=== PATIENT | female | born 1960 | race Hispanic/Latino ===

== ENCOUNTER 2020-07-30 00:31 | Emergency (ER) | payer MEDICAID ==
[~2020-07-30] VITALS: Ht 147.3 cm; Wt 86.2 kg
[2020-07-30 01:26] VITALS: BP 191/83
[2020-07-30 01:32] LABS: HEMATOCRIT 36.2 % (36-48); MEAN CORPUSCULAR HEMOGLOBIN 28.6 pg (27.0-33.0); MEAN CORPUSCULAR HGB CONC 33.4 g/dL (32.0-36.0); MEAN CORPUSCULAR VOLUME 85.6 fL (79-99); RED BLOOD CELL COUNT(AUTO) 4.23 MIL/uL (4.00-5.50); WHITE BLOOD COUNT (AUTO) 7.5 K/uL (4.8-10.8)
[2020-07-30] MEDS ORDERED: HYDRALAZINE HCL 20 MG/ML VIAL IV SCH (01:45)
[2020-07-30] MEDS ORDERED: SODIUM CHLORIDE 0.9% 500ML 500 ML IV SCH (01:45)
[2020-07-30] MEDS ORDERED: HYDRALAZINE HCL 20 MG/ML VIAL ONE (01:45)
[2020-07-30 01:53] LABS: CREATININE 1.1 mg/dL (0.5-1.5); POTASSIUM 3.5 mmol/L (3.5-5.1)
[2020-07-30 01:58] VITALS: BP 180/51
[2020-07-30 01:58] LABS: ALBUMIN 2.3 g/dL (3.5-5.0); BILIRUBIN,TOTAL 0.1 mg/dL (0.2-1.0); TOTAL PROTEIN, SERUM 5.7 g/dL (6.0-8.3)
[2020-07-30 02:53] VITALS: BP 170/52
[2020-07-30 03:20] VITALS: BP 156/59
[2020-07-30 04:34] VITALS: BP 156/57
== END 2020-07-30 03:43 | disposition short-term general hospital (02) ==
LOC: EDH 01:18
DX: I10 Essential (primary) hypertension (principal); Z91.14 Patient's other noncompliance with medication regimen; E11.9 Type 2 diabetes mellitus without complications; M19.90 Unspecified osteoarthritis, unspecified site; Z90.710 Acquired absence of both cervix and uterus
CPT/HCPCS: 36415; 71045; 80053; 84484; 85027; 93005; 96374; 99285; J0360

== ENCOUNTER 2020-11-22 14:44 | Emergency (ER) | payer MEDICAID ==
[~2020-11-22] VITALS: Ht 147.3 cm; Wt 80.3 kg
[2020-11-22 14:45] VITALS: BP 166/45
[2020-11-22] MEDS ORDERED: SOLU-MEDROL 125MG VIAL IM STA (16:22)
[2020-11-22] MEDS ORDERED: DiphenhydrAMINE HCL 50 MG/ML VIAL IM ONE (16:30)
== END 2020-11-22 18:10 | disposition home or self-care (01) ==
LOC: EDH 14:44
DX: L40.9 Psoriasis, unspecified (principal); J45.909 Unspecified asthma, uncomplicated; E11.9 Type 2 diabetes mellitus without complications; E78.00 Pure hypercholesterolemia, unspecified; I10 Essential (primary) hypertension; Z79.52 Long term (current) use of systemic steroids; Z90.710 Acquired absence of both cervix and uterus
CPT/HCPCS: 96372 ×2; 99284; J1200; J2930

== ENCOUNTER 2020-12-21 08:46 | Emergency (ER) | payer MEDICAID ==
[~2020-12-21] VITALS: Ht 149.9 cm; Wt 78.0 kg
[2020-12-21] MEDS ORDERED: SOLU-MEDROL 125MG VIAL IVP ONE (09:30)
[2020-12-21] MEDS ORDERED: MORPHINE 2 MG SYG IVP ONE (09:30)
[2020-12-21] MEDS ORDERED: KETOROLAC 15MG/ML VIAL (15MG/ML) IV ONE (09:30)
[2020-12-21 09:44] LABS: BASOPHILS % (AUTO) 0.5 % (0.0-5.0); EOSINOPHILS % (AUTO) 2.6 % (0.0-8.0); HEMATOCRIT 35.6 % (36-48); MEAN CORPUSCULAR HEMOGLOBIN 27.8 pg (27.0-33.0); MEAN CORPUSCULAR HGB CONC 31.7 g/dL (32.0-36.0); MEAN CORPUSCULAR VOLUME 87.5 fL (79-99); MONOCYTES % (AUTO) 9.3 % (3.0-13.0); NEUTROPHILS % (AUTO) 72.9 % (40.0-77.0); PLATELET COUNT (AUTO) 298 K/uL (130-400); RED BLOOD CELL COUNT(AUTO) 4.07 MIL/uL (4.00-5.50); WHITE BLOOD COUNT (AUTO) 9.5 K/uL (4.8-10.8)
[2020-12-21 10:01] LABS: ALBUMIN 1.8 g/dL (3.5-5.0); BILIRUBIN,TOTAL 0.2 mg/dL (0.2-1.0); CREATININE 1.3 mg/dL (0.5-1.5); CRP QUANTITATIVE 14.5 mg/L (0.00-9.0); POTASSIUM 3.9 mmol/L (3.5-5.1); TOTAL PROTEIN, SERUM 5.9 g/dL (6.0-8.3)
[2020-12-21] MEDS ORDERED: IBUP-2070 PO (10:32)
[2020-12-21] MEDS ORDERED: ACET1TAB25 PO (10:32)
[2020-12-21] MEDS ORDERED: METH4TAB3 PO (10:32)
[2020-12-21 10:36] VITALS: BP 136/79
== END 2020-12-21 11:06 | disposition home or self-care (01) ==
LOC: EDH 08:46
DX: L40.9 Psoriasis, unspecified (principal); Z91.14 Patient's other noncompliance with medication regimen; E11.9 Type 2 diabetes mellitus without complications; E78.00 Pure hypercholesterolemia, unspecified; I10 Essential (primary) hypertension; Z79.1 Long term (current) use of non-steroidal anti-inflammatories (NSAID); Z79.52 Long term (current) use of systemic steroids
CPT/HCPCS: 36415; 80053; 85025; 86140; 96374; 96375; 99284; J1885; J2930

== ENCOUNTER 2021-01-18 03:46 | Inpatient (IN) | payer MEDICAID ==
[~2021-01-18] VITALS: Ht 142.2 cm; Wt 85.5 kg
[~2021-01-18 03:46] MED LIST: ACET1TAB25 PO; IBUP-2070 PO; METH4TAB3 PO
[2021-01-18] MEDS ORDERED: FUROSEMIDE 40MG VIAL IVP ONE (04:30)
[2021-01-18] MEDS ORDERED: NITROGLYCERIN 1GM OINT 1 INCH/1GM TD ONE (04:30)
[2021-01-18 04:55] LABS: BASOPHILS % (AUTO) 0.7 % (0.0-5.0); EOSINOPHILS % (AUTO) 5.9 % (0.0-8.0); HEMATOCRIT 34.3 % (36-48); LYMPHOCYTES % (AUTO) 22.7 % (21.0-51.0); MEAN CORPUSCULAR HEMOGLOBIN 27.7 pg (27.0-33.0); MEAN CORPUSCULAR HGB CONC 31.2 g/dL (32.0-36.0); MEAN CORPUSCULAR VOLUME 88.9 fL (79-99); MONOCYTES % (AUTO) 8.8 % (3.0-13.0); PLATELET COUNT (AUTO) 369 K/uL (130-400); RED BLOOD CELL COUNT(AUTO) 3.86 MIL/uL (4.00-5.50); RED CELL DISTRIBUTION WIDTH 15.9 % (11.0-15.5); WHITE BLOOD COUNT (AUTO) 9.9 K/uL (4.8-10.8)
[2021-01-18 05:02] LABS: CREATININE 1.4 mg/dL (0.5-1.5); POTASSIUM 4.3 mmol/L (3.5-5.1)
[2021-01-18 05:12] LABS: B-TYPE NATRIURETIC PEPTIDE 322 pg/mL (0-100); BILIRUBIN,TOTAL 0.2 mg/dL (0.2-1.0); TOTAL PROTEIN, SERUM 6.7 g/dL (6.0-8.3)
[2021-01-18] MEDS ORDERED: SERT-439 PO (05:12)
[2021-01-18] MEDS ORDERED: AMLO-258 PO (05:12)
[2021-01-18] MEDS ORDERED: CETI10TA57 PO (05:12)
[2021-01-18] MEDS ORDERED: LORA10TA7 PO (05:12)
[2021-01-18] MEDS ORDERED: SULF500T8 PO (05:12)
[2021-01-18] MEDS ORDERED: FURO40TA5 PO (05:12)
[2021-01-18] MEDS ORDERED: MECL-160 PO (05:12)
[2021-01-18] MEDS ORDERED: METO50TA18 PO (05:12)
[2021-01-18] MEDS ORDERED: GABA-533 PO (05:12)
[2021-01-18 05:41] LABS: ABG BASE EXCESS -2.3 mmol/L (-2.0-3.0); ABG HCO3 21.7 mmol/L (21.0-28.0); ABG OXYGEN SATURATION 92.9 % (95.0-99.0); ABG PCO2 36 mmHg (32-45)
[2021-01-18] MEDS ORDERED: ACETAMINOPHEN 325 MG TAB PO PRN (06:30)
[2021-01-18] MEDS ORDERED: GUAIFENESIN-DM 200/20 MG 10 ML PO PRN (06:30)
[2021-01-18] MEDS ORDERED: MORPHINE 2 MG SYG IV PRN (06:30)
[2021-01-18] MEDS ORDERED: ONDANSETRON 4MG INJ IV PRN (06:30)
[2021-01-18] MEDS: HYDRALAZINE 20MG/ML VIAL IV PRN (06:44)
[2021-01-18] MEDS: ENOXAPARIN SODIUM 40 MG/0.4 ML SYRINGE SQ SCH (09:18)
[2021-01-18] MEDS ORDERED: 0.9% NACL 250ML IVPB SCH (13:00)
[2021-01-18] MEDS ORDERED: DOXYCYCLINE 100MG IVPB (VIAL) IVPB SCH (13:00)
[2021-01-18] MEDS: DOXYCYCLINE 100MG+NS 250ML 250 ML IV SCH (13:15)
[2021-01-18] MEDS: FUROSEMIDE 40MG VIAL IV SCH (13:15)
[2021-01-18] MEDS: CEFTRIAXONE 1G VIAL IVP SCH (13:15)
[2021-01-18 14:26] LABS: APPEARANCE,URINE Clear (CLEAR); BILIRUBIN,URINE Negative (NEGATIVE); COLOR,URINE Yellow (YELLOW); GLUCOSE, URINE (UA) Negative (NEGATIVE); KETONES,URINE Negative (NEGATIVE); LEUKOCYTE ESTERASE ,URINE Negative (NEGATIVE); NITRATE,URINE Negative (NEGATIVE); OCCULT BLOOD,URINE Negative (NEGATIVE); PROTEIN,URINE 300 mg/dL (NEGATIVE); UROBILINOGEN,URINE 0.2 mg/dL (0.2-1.0)
[2021-01-18 14:37] LABS: BACTERIA,URINE Rare /HPF (None Seen); RBC,URINE 0-1 /HPF (0-1); WBC,URINE 0-1 /HPF (0-1); YEAST,URINE BUDDING Rare /HPF (None Seen)
[2021-01-18 14:38] LABS: SQUAMOUS EPITHELIAL CELL,UR Few /HPF (0-2)
[2021-01-18] MEDS ORDERED: FUROSEMIDE 20MG VIAL IV SCH (16:00)
[2021-01-18] MEDS ORDERED: DEXTROSE 50%-WATER 50 ML DISP.SYRIN IV ONE (22:37)
[2021-01-18] MEDS ORDERED: GLUCAGON 1MG KIT 1 MG ML IM PRN (23:30)
[2021-01-18] MEDS ORDERED: DEXTROSE 50%-WATER 50 ML DISP.SYRIN IV PRN (23:30)
[2021-01-19] MEDS: DEXTROSE 5%-WATER 1,000 ML IV SCH (01:15)
[2021-01-19] MEDS: FUROSEMIDE 40MG VIAL IV SCH ×2 (01:15→14:47)
[2021-01-19] MEDS: DOXYCYCLINE 100MG+NS 250ML 250 ML IV SCH ×2 (01:15→14:47)
[2021-01-19 04:18] LABS: ABG BASE EXCESS 0.7 mmol/L (-2.0-3.0); ABG HCO3 23.8 mmol/L (21.0-28.0); ABG OXYGEN SATURATION 98.2 % (95.0-99.0); ABG PCO2 34 mmHg (32-45)
[2021-01-19] MEDS: ENOXAPARIN SODIUM 40 MG/0.4 ML SYRINGE SQ SCH (08:49)
[2021-01-19] MEDS ORDERED: MECLIZINE HCL 25 MG TABLET PO PRN (09:30)
[2021-01-19] MEDS: HYDRALAZINE 20MG/ML VIAL IV PRN (09:34)
[2021-01-19 09:56] LABS: BASOPHILS % (AUTO) 0.6 % (0.0-5.0); EOSINOPHILS % (AUTO) 4.1 % (0.0-8.0); HEMATOCRIT 35.9 % (36-48); LYMPHOCYTES % (AUTO) 15.4 % (21.0-51.0); MEAN CORPUSCULAR HEMOGLOBIN 27.4 pg (27.0-33.0); MEAN CORPUSCULAR HGB CONC 31.2 g/dL (32.0-36.0); MEAN CORPUSCULAR VOLUME 87.8 fL (79-99); MONOCYTES % (AUTO) 7.8 % (3.0-13.0); NEUTROPHILS % (AUTO) 71.6 % (40.0-77.0); PLATELET COUNT (AUTO) 381 K/uL (130-400); RED BLOOD CELL COUNT(AUTO) 4.09 MIL/uL (4.00-5.50); RED CELL DISTRIBUTION WIDTH 15.8 % (11.0-15.5); WHITE BLOOD COUNT (AUTO) 9.4 K/uL (4.8-10.8)
[2021-01-19 10:11] LABS: CREATININE 1.2 mg/dL (0.5-1.5); POTASSIUM 4.3 mmol/L (3.5-5.1)
[2021-01-19] MEDS: METOPROLOL TARTRATE 50 MG TAB PO SCH (10:31)
[2021-01-19] MEDS ORDERED: TRIAMCINOLONE ACETONIDE 0.1% CREAM 15GM TP SCH (13:00)
[2021-01-19 13:05] VITALS: BP 138/71
[2021-01-19] MEDS ORDERED: SODIUM CHLORIDE 3% FOR INHALATION 4 ML/AMP VIAL.NEB IH ONE (14:09)
[2021-01-19] MEDS ORDERED: 0.9% NACL 250ML 250 ML ONE (14:44)
[2021-01-19] MEDS: CEFTRIAXONE 1G VIAL IVP SCH (14:47)
[2021-01-19 16:00] VITALS: BP 124/71
[2021-01-19 20:15] VITALS: BP 155/94
[2021-01-19] MEDS: SULFASALAZINE 500 MG TAB.DR PO SCH (20:24)
[2021-01-19 23:18] VITALS: BP 119/52
[2021-01-20] MEDS: FUROSEMIDE 40MG VIAL IV SCH ×2 (00:06→15:08)
[2021-01-20] MEDS: DOXYCYCLINE 100MG+NS 250ML 250 ML IV SCH ×2 (00:06→15:07)
[2021-01-20 03:23] VITALS: BP 144/49
[2021-01-20 06:11] LABS: BASOPHILS % (AUTO) 0.8 % (0.0-5.0); EOSINOPHILS % (AUTO) 6.4 % (0.0-8.0); HEMATOCRIT 30.5 % (36-48); LYMPHOCYTES % (AUTO) 20.1 % (21.0-51.0); MEAN CORPUSCULAR HEMOGLOBIN 27.8 pg (27.0-33.0); MEAN CORPUSCULAR HGB CONC 31.8 g/dL (32.0-36.0); MEAN CORPUSCULAR VOLUME 87.4 fL (79-99); MONOCYTES % (AUTO) 10.1 % (3.0-13.0); NEUTROPHILS % (AUTO) 62.1 % (40.0-77.0); PLATELET COUNT (AUTO) 268 K/uL (130-400); RED BLOOD CELL COUNT(AUTO) 3.49 MIL/uL (4.00-5.50); RED CELL DISTRIBUTION WIDTH 16.3 % (11.0-15.5); WHITE BLOOD COUNT (AUTO) 8.8 K/uL (4.8-10.8)
[2021-01-20 06:14] LABS: CREATININE 1.5 mg/dL (0.5-1.5); MAGNESIUM 1.6 mg/dL (1.80-2.40)
[2021-01-20 07:00] VITALS: BP 113/65
[2021-01-20 07:16] VITALS: BP 132/62
[2021-01-20] MEDS ORDERED: MAGNESIUM 2GM PREMIX 50ML 50 ML IV SCH (08:30)
[2021-01-20] MEDS: SULFASALAZINE 500 MG TAB.DR PO SCH ×2 (08:57→20:05)
[2021-01-20] MEDS: SERTRALINE HCL 50 MG TABLET PO SCH (08:57)
[2021-01-20] MEDS: METOPROLOL TARTRATE 50 MG TAB PO SCH (08:57)
[2021-01-20] MEDS: CETIRIZINE HCL 5 MG TABLET PO SCH (08:57)
[2021-01-20] MEDS: AMLODIPINE 5 MG TAB PO SCH (08:57)
[2021-01-20] MEDS: ENOXAPARIN SODIUM 40 MG/0.4 ML SYRINGE SQ SCH (08:58)
[2021-01-20 12:00] VITALS: BP 127/56
[2021-01-20] MEDS: CEFTRIAXONE 1G VIAL IVP SCH (15:07)
[2021-01-20] MEDS: DEXTROSE 5%-WATER 1,000 ML IV SCH ×2 (15:30)
[2021-01-20 16:13] VITALS: BP 130/60
[2021-01-20 19:26] VITALS: BP 138/61
[2021-01-21] MEDS: DOXYCYCLINE 100MG+NS 250ML 250 ML IV SCH ×3 (01:25→21:06)
[2021-01-21] MEDS: FUROSEMIDE 40MG VIAL IV SCH (01:26)
[2021-01-21 01:30] VITALS: BP 140/60
[2021-01-21 05:31] VITALS: BP 107/32
[2021-01-21 06:20] LABS: CREATININE 1.4 mg/dL (0.5-1.5); POTASSIUM 3.7 mmol/L (3.5-5.1)
[2021-01-21 07:18] VITALS: BP 150/50
[2021-01-21] MEDS ORDERED: CEFTRIAXONE 1G VIAL IVP SCH (09:00)
[2021-01-21] MEDS: AMLODIPINE 5 MG TAB PO SCH (09:32)
[2021-01-21] MEDS: SERTRALINE HCL 50 MG TABLET PO SCH (09:32)
[2021-01-21] MEDS: METOPROLOL TARTRATE 50 MG TAB PO SCH (09:32)
[2021-01-21] MEDS: SULFASALAZINE 500 MG TAB.DR PO SCH ×2 (09:32→21:06)
[2021-01-21] MEDS: ENOXAPARIN SODIUM 40 MG/0.4 ML SYRINGE SQ SCH (09:32)
[2021-01-21] MEDS: CETIRIZINE HCL 5 MG TABLET PO SCH (09:32)
[2021-01-21 12:00] VITALS: BP 132/57
[2021-01-21 16:00] VITALS: BP 133/55
[2021-01-21] MEDS ORDERED: SERTRALINE HCL 50 MG TABLET PO SCH (16:00)
[2021-01-21] MEDS: FUROSEMIDE 40 MG TABLET PO SCH (16:18)
[2021-01-21] MEDS ORDERED: FUROSEMIDE 40MG VIAL IV SCH (17:00)
[2021-01-21] MEDS ORDERED: FUROSEMIDE 40 MG TABLET PO SCH (17:00)
[2021-01-21 19:27] VITALS: BP 134/47
[2021-01-22] VITALS: BP 138/54
[2021-01-22 04:30] VITALS: BP 146/65
[2021-01-22 06:41] LABS: BASOPHILS % (AUTO) 0.4 % (0.0-5.0); EOSINOPHILS % (AUTO) 6.5 % (0.0-8.0); MEAN CORPUSCULAR HEMOGLOBIN 27.5 pg (27.0-33.0); MEAN CORPUSCULAR HGB CONC 31.4 g/dL (32.0-36.0); MEAN CORPUSCULAR VOLUME 87.5 fL (79-99); MONOCYTES % (AUTO) 9.7 % (3.0-13.0); NEUTROPHILS % (AUTO) 65.7 % (40.0-77.0); PLATELET COUNT (AUTO) 270 K/uL (130-400); RED CELL DISTRIBUTION WIDTH 15.9 % (11.0-15.5); WHITE BLOOD COUNT (AUTO) 9.2 K/uL (4.8-10.8)
[2021-01-22 07:04] LABS: CREATININE 1.4 mg/dL (0.5-1.5); POTASSIUM 3.7 mmol/L (3.5-5.1)
[2021-01-22] MEDS: FUROSEMIDE 40 MG TABLET PO SCH (09:45)
[2021-01-22] MEDS: METOPROLOL TARTRATE 50 MG TAB PO SCH (09:45)
[2021-01-22] MEDS: CETIRIZINE HCL 5 MG TABLET PO SCH (09:45)
[2021-01-22] MEDS: SULFASALAZINE 500 MG TAB.DR PO SCH ×2 (09:45→22:00)
[2021-01-22] MEDS: SERTRALINE HCL 50 MG TABLET PO SCH (09:45)
[2021-01-22] MEDS: AMLODIPINE 5 MG TAB PO SCH (09:46)
[2021-01-22] MEDS: PANTOPRAZOLE 40 MG TAB DR PO SCH ×2 (09:46→22:00)
[2021-01-22 11:45] LABS: % IRON SATURATION 20.6 % (22-44)
[2021-01-22 12:00] VITALS: BP 170/69
[2021-01-22 16:00] VITALS: BP 118/65
[2021-01-22 20:00] VITALS: BP 128/50
[2021-01-23 00:12] VITALS: BP 137/53
[2021-01-23 04:00] VITALS: BP 139/51
[2021-01-23 07:18] VITALS: BP 146/63
[2021-01-23 07:45] LABS: BASOPHILS % (AUTO) 0.6 % (0.0-5.0); EOSINOPHILS % (AUTO) 4.5 % (0.0-8.0); HEMATOCRIT 29.2 % (36-48); LYMPHOCYTES % (AUTO) 15.3 % (21.0-51.0); MEAN CORPUSCULAR HEMOGLOBIN 27.2 pg (27.0-33.0); MEAN CORPUSCULAR HGB CONC 31.2 g/dL (32.0-36.0); MEAN CORPUSCULAR VOLUME 87.2 fL (79-99); MONOCYTES % (AUTO) 9.1 % (3.0-13.0); NEUTROPHILS % (AUTO) 70.1 % (40.0-77.0); PLATELET COUNT (AUTO) 271 K/uL (130-400); RED BLOOD CELL COUNT(AUTO) 3.35 MIL/uL (4.00-5.50); RED CELL DISTRIBUTION WIDTH 15.9 % (11.0-15.5); WHITE BLOOD COUNT (AUTO) 10.1 K/uL (4.8-10.8)
[2021-01-23 08:14] LABS: CREATININE 1.5 mg/dL (0.5-1.5); POTASSIUM 3.9 mmol/L (3.5-5.1)
[2021-01-23] MEDS: PANTOPRAZOLE 40 MG TAB DR PO SCH (09:00)
[2021-01-23] MEDS: AMLODIPINE 5 MG TAB PO SCH (09:50)
[2021-01-23] MEDS: SULFASALAZINE 500 MG TAB.DR PO SCH ×2 (09:50→21:11)
[2021-01-23] MEDS: CETIRIZINE HCL 5 MG TABLET PO SCH (09:50)
[2021-01-23] MEDS: SERTRALINE HCL 50 MG TABLET PO SCH (09:51)
[2021-01-23] MEDS: METOPROLOL TARTRATE 50 MG TAB PO SCH (09:51)
[2021-01-23] MEDS: FUROSEMIDE 40 MG TABLET PO SCH (09:51)
[2021-01-23 12:00] VITALS: BP 149/71
[2021-01-23] MEDS ORDERED: PANTOPRAZOLE 40 MG TAB DR ONE (12:51)
[2021-01-23] MEDS ORDERED: COMPOUND IV MISC 1 EACH IVSOLN MISC PRN (13:30)
[2021-01-23] MEDS: CEFTRIAXONE 1G VIAL IVP SCH (15:08)
[2021-01-23] MEDS: IRON SUCROSE COMPLEX 500 MG in 0.9%NACL 50ML 50 ML IV SCH (15:08)
[2021-01-23 16:00] VITALS: BP 117/45
[2021-01-23] MEDS: TRIAMCINOLONE ACETONIDE 0.1% CREAM 15GM TP SCH ×2 (17:01→21:00)
[2021-01-23 21:03] VITALS: BP 143/66
[2021-01-24] VITALS (8 sets, daily range): BP systolic 93–152; BP diastolic 43–84
[2021-01-24] MEDS: CETIRIZINE HCL 5 MG TABLET PO SCH (08:50)
[2021-01-24] MEDS: FUROSEMIDE 40 MG TABLET PO SCH (08:50)
[2021-01-24] MEDS: AMLODIPINE 5 MG TAB PO SCH (08:50)
[2021-01-24] MEDS: METOPROLOL TARTRATE 50 MG TAB PO SCH (08:50)
[2021-01-24] MEDS: SERTRALINE HCL 50 MG TABLET PO SCH (08:51)
[2021-01-24] MEDS: PANTOPRAZOLE 40 MG TAB DR PO SCH (08:51)
[2021-01-24] MEDS: TRIAMCINOLONE ACETONIDE 0.1% CREAM 15GM TP SCH ×4 (08:51→20:47)
[2021-01-24] MEDS: SULFASALAZINE 500 MG TAB.DR PO SCH ×2 (08:51→20:45)
[2021-01-24] MEDS: IRON SUCROSE COMPLEX 500 MG in 0.9%NACL 50ML 50 ML IV SCH (08:56)
[2021-01-24] MEDS: CEFTRIAXONE 1G VIAL IVP SCH (13:51)
[2021-01-24] MEDS: LACTULOSE 20 GM/30 ML UDCUP PO PRN (20:45)
[2021-01-24] MEDS: SOLU-MEDROL 40MG VIAL IVP SCH (20:45)
[2021-01-25 05:37] VITALS: BP 152/72
[2021-01-25 07:50] VITALS: BP 129/58
[2021-01-25] MEDS: SULFASALAZINE 500 MG TAB.DR PO SCH (08:38)
[2021-01-25] MEDS: AMLODIPINE 5 MG TAB PO SCH (08:38)
[2021-01-25] MEDS: SOLU-MEDROL 40MG VIAL IVP SCH ×3 (08:38→20:39)
[2021-01-25] MEDS: FUROSEMIDE 40 MG TABLET PO SCH (08:38)
[2021-01-25] MEDS: CETIRIZINE HCL 5 MG TABLET PO SCH (08:38)
[2021-01-25] MEDS: TRIAMCINOLONE ACETONIDE 0.1% CREAM 15GM TP SCH ×4 (08:39→20:48)
[2021-01-25] MEDS: METOPROLOL TARTRATE 50 MG TAB PO SCH (08:39)
[2021-01-25] MEDS: SERTRALINE HCL 50 MG TABLET PO SCH (08:39)
[2021-01-25] MEDS: PANTOPRAZOLE 40 MG TAB DR PO SCH (08:39)
[2021-01-25] MEDS: IRON SUCROSE COMPLEX 500 MG in 0.9%NACL 50ML 50 ML IV SCH (08:42)
[2021-01-25 09:59] LABS: BASOPHILS % (AUTO) 0.4 % (0.0-5.0); HEMATOCRIT 31.6 % (36-48); LYMPHOCYTES % (AUTO) 12.8 % (21.0-51.0); MEAN CORPUSCULAR HEMOGLOBIN 27.1 pg (27.0-33.0); MEAN CORPUSCULAR VOLUME 87.3 fL (79-99); MONOCYTES % (AUTO) 5.8 % (3.0-13.0); NEUTROPHILS % (AUTO) 78.4 % (40.0-77.0); NUCLEATED RED BLOOD CELLS 0.8 % (0.0-0.19); PLATELET COUNT (AUTO) 311 K/uL (130-400); RED BLOOD CELL COUNT(AUTO) 3.62 MIL/uL (4.00-5.50); RED CELL DISTRIBUTION WIDTH 15.9 % (11.0-15.5); WHITE BLOOD COUNT (AUTO) 13.2 K/uL (4.8-10.8)
[2021-01-25 10:08] LABS: % IRON SATURATION 116.3 % (22-44)
[2021-01-25 10:09] LABS: CREATININE 1.8 mg/dL (0.5-1.5); PHOSPHORUS 5.9 mg/dL (2.5-4.9); POTASSIUM 4.4 mmol/L (3.5-5.1)
[2021-01-25 10:11] LABS: BILIRUBIN,TOTAL 0.2 mg/dL (0.2-1.0); CRP QUANTITATIVE 74.4 mg/L (0.00-9.0); MAGNESIUM 2.2 mg/dL (1.80-2.40); TOTAL PROTEIN, SERUM 6.3 g/dL (6.0-8.3)
[2021-01-25 11:00] VITALS: BP 149/65
[2021-01-25 11:07] LABS: ERYTHROCYTE SEDIMENTATION RATE 102 MM/HR (0-30)
[2021-01-25] MEDS ORDERED: HYDROCHLOROTHIAZIDE 25 MG TABLET PO ONE (13:50)
[2021-01-25] MEDS: CEFTRIAXONE 1G VIAL IVP SCH (14:15)
[2021-01-25 16:00] VITALS: BP 149/59
[2021-01-25] MEDS: INSULIN HUMULIN R 100 UNIT/ML 3ML SQ SCH ×3 (16:08→20:47)
[2021-01-25] MEDS ORDERED: SODIUM CHLORIDE 3% FOR INHALATION 4 ML/AMP VIAL.NEB IH ONE (18:36)
[2021-01-25 19:30] VITALS: BP 149/71
[2021-01-25] MEDS: MIRTAZAPINE 15 MG TABLET PO SCH (20:39)
[2021-01-25] MEDS: INSULIN GLARGINE 100 UNITS/ML 10 ML VIAL SQ SCH (20:45)
[2021-01-26 00:38] VITALS: BP 138/48
[2021-01-26 04:52] VITALS: BP 174/69
[2021-01-26] MEDS: SOLU-MEDROL 40MG VIAL IVP SCH ×3 (05:07→22:13)
[2021-01-26 05:25] LABS: BASOPHILS % (AUTO) 0.5 % (0.0-5.0); EOSINOPHILS % (AUTO) 0.1 % (0.0-8.0); HEMATOCRIT 33.2 % (36-48); LYMPHOCYTES % (AUTO) 9.2 % (21.0-51.0); MEAN CORPUSCULAR HEMOGLOBIN 27.6 pg (27.0-33.0); MEAN CORPUSCULAR HGB CONC 30.1 g/dL (32.0-36.0); MEAN CORPUSCULAR VOLUME 91.7 fL (79-99); MONOCYTES % (AUTO) 2.8 % (3.0-13.0); NEUTROPHILS % (AUTO) 83.6 % (40.0-77.0); NUCLEATED RED BLOOD CELLS 1.3 % (0.0-0.19); PLATELET COUNT (AUTO) 262 K/uL (130-400); RED BLOOD CELL COUNT(AUTO) 3.62 MIL/uL (4.00-5.50); WHITE BLOOD COUNT (AUTO) 13.5 K/uL (4.8-10.8)
[2021-01-26 05:50] LABS: B-TYPE NATRIURETIC PEPTIDE 453 pg/mL (0-100)
[2021-01-26 06:04] LABS: BILIRUBIN,TOTAL 0.1 mg/dL (0.2-1.0); CREATININE 2.1 mg/dL (0.5-1.5); CRP QUANTITATIVE 49.3 mg/L (0.00-9.0); POTASSIUM 4.2 mmol/L (3.5-5.1); TOTAL PROTEIN, SERUM 6.3 g/dL (6.0-8.3)
[2021-01-26 07:29] LABS: ERYTHROCYTE SEDIMENTATION RATE 115 MM/HR (0-30)
[2021-01-26] MEDS: INSULIN HUMULIN R 100 UNIT/ML 3ML SQ SCH ×4 (07:30→22:23)
[2021-01-26 08:00] VITALS: BP 167/68
[2021-01-26] MEDS: CETIRIZINE HCL 5 MG TABLET PO SCH (08:31)
[2021-01-26] MEDS: HYDROCHLOROTHIAZIDE 25 MG TABLET PO SCH (08:31)
[2021-01-26] MEDS: PANTOPRAZOLE 40 MG TAB DR PO SCH (08:32)
[2021-01-26] MEDS: METOPROLOL TARTRATE 50 MG TAB PO SCH (08:32)
[2021-01-26] MEDS: AMLODIPINE 5 MG TAB PO SCH (08:32)
[2021-01-26] MEDS: SERTRALINE HCL 50 MG TABLET PO SCH (08:32)
[2021-01-26] MEDS: TRIAMCINOLONE ACETONIDE 0.1% CREAM 15GM TP SCH ×4 (08:39→22:15)
[2021-01-26] MEDS ORDERED: PREDNISONE 20 MG TABLET PO SCH (09:00)
[2021-01-26] MEDS ORDERED: FUROSEMIDE 40 MG TABLET PO SCH (09:00)
[2021-01-26 12:00] VITALS: BP 159/80
[2021-01-26] MEDS ORDERED: 0.9%NACL 1000ML 1,000 ML IV SCH (12:30)
[2021-01-26 16:00] VITALS: BP 162/76
[2021-01-26] MEDS: HYDRALAZINE HCL 10 MG TABLET PO SCH ×2 (16:41→22:13)
[2021-01-26] MEDS: CYCLOBENZAPRINE HCL 10 MG TABLET PO SCH ×2 (16:41→22:12)
[2021-01-26] MEDS: CEFTRIAXONE 1G VIAL IVP SCH (16:41)
[2021-01-26 19:13] VITALS: BP 151/78
[2021-01-26] MEDS: ATORVASTATIN 40 MG TABLET PO SCH (22:12)
[2021-01-26] MEDS: MIRTAZAPINE 15 MG TABLET PO SCH (22:12)
[2021-01-26] MEDS: INSULIN GLARGINE 100 UNITS/ML 10 ML VIAL SQ SCH (22:23)
[2021-01-27] VITALS (7 sets, daily range): BP systolic 146–176; BP diastolic 50–74
[2021-01-27] MEDS: SOLU-MEDROL 40MG VIAL IVP SCH ×3 (04:53→21:16)
[2021-01-27] MEDS: HYDRALAZINE 20MG/ML VIAL IV PRN (04:58)
[2021-01-27] MEDS: INSULIN HUMULIN R 100 UNIT/ML 3ML SQ SCH ×5 (05:59→21:20)
[2021-01-27 06:11] LABS: CREATININE 2.5 mg/dL (0.5-1.5); POTASSIUM 4.3 mmol/L (3.5-5.1)
[2021-01-27 06:41] LABS: HEMATOCRIT 29.6 % (36-48); MEAN CORPUSCULAR HEMOGLOBIN 27.5 pg (27.0-33.0); MEAN CORPUSCULAR HGB CONC 31.8 g/dL (32.0-36.0); MEAN CORPUSCULAR VOLUME 86.5 fL (79-99); NUCLEATED RED BLOOD CELLS 0.7 % (0.0-0.19); RED BLOOD CELL COUNT(AUTO) 3.42 MIL/uL (4.00-5.50); RED CELL DISTRIBUTION WIDTH 15.9 % (11.0-15.5); WHITE BLOOD COUNT (AUTO) 13.7 K/uL (4.8-10.8)
[2021-01-27] MEDS: HYDROCHLOROTHIAZIDE 25 MG TABLET PO SCH (10:25)
[2021-01-27] MEDS: SERTRALINE HCL 50 MG TABLET PO SCH (10:25)
[2021-01-27] MEDS: METOPROLOL TARTRATE 50 MG TAB PO SCH (10:26)
[2021-01-27] MEDS: HYDRALAZINE HCL 10 MG TABLET PO SCH ×3 (10:26→21:16)
[2021-01-27] MEDS: PANTOPRAZOLE 40 MG TAB DR PO SCH (10:26)
[2021-01-27] MEDS: AMLODIPINE 5 MG TAB PO SCH (10:26)
[2021-01-27] MEDS: CETIRIZINE HCL 5 MG TABLET PO SCH (10:26)
[2021-01-27] MEDS: CYCLOBENZAPRINE HCL 10 MG TABLET PO SCH ×3 (10:26→21:16)
[2021-01-27] MEDS: TRIAMCINOLONE ACETONIDE 0.1% CREAM 15GM TP SCH ×4 (10:27→21:27)
[2021-01-27] MEDS: CEFTRIAXONE 1G VIAL IVP SCH (13:30)
[2021-01-27] MEDS: BUSPIRONE HCL 5 MG TABLET PO SCH ×2 (13:33→21:15)
[2021-01-27 14:26] LABS: CREATINE KINASE, TOTAL 46 U/L (21-232); MYOGLOBIN 91 ng/mL (10-92)
[2021-01-27 20:52] LABS: APPEARANCE,URINE CLOUDY (CLEAR); BILIRUBIN,URINE NEGATIVE (NEGATIVE); COLOR,URINE YELLOW (YELLOW); GLUCOSE, URINE (UA) 250 mg/dL (NEGATIVE); KETONES,URINE NEGATIVE (NEGATIVE); LEUKOCYTE ESTERASE ,URINE NEGATIVE (NEGATIVE); NITRATE,URINE NEGATIVE (NEGATIVE); OCCULT BLOOD,URINE TRACE-INTACT (NEGATIVE); PH,URINE 5.5 (5.0-8.0); PROTEIN,URINE >=300 mg/dL (NEGATIVE); UROBILINOGEN,URINE 0.2 mg/dL (0.2-1.0)
[2021-01-27 20:58] LABS: CREATININE,URINE RANDOM 120 mg/dL (30-135); SODIUM,URINE RANDOM 38 mmol/l (40-220)
[2021-01-27 21:09] LABS: BACTERIA,URINE Moderate /HPF (None Seen)
[2021-01-27 21:10] LABS: SQUAMOUS EPITHELIAL CELL,UR Moderate /HPF (0-2); YEAST,URINE BUDDING Few /HPF (None Seen)
[2021-01-27] MEDS: MIRTAZAPINE 15 MG TABLET PO SCH (21:16)
[2021-01-27] MEDS: ATORVASTATIN 40 MG TABLET PO SCH (21:16)
[2021-01-27] MEDS: INSULIN GLARGINE 100 UNITS/ML 10 ML VIAL SQ SCH (21:19)
[2021-01-27 22:10] LABS: PROTEIN,URINE RANDOM 1416.8 mg/dL (0-11.9)
[2021-01-28] VITALS (8 sets, daily range): BP systolic 125–177; BP diastolic 53–95
[2021-01-28 04:43] LABS: BASOPHILS % (AUTO) 0.2 % (0.0-5.0); HEMATOCRIT 29.4 % (36-48); LYMPHOCYTES % (AUTO) 8.3 % (21.0-51.0); MEAN CORPUSCULAR HEMOGLOBIN 28.1 pg (27.0-33.0); MEAN CORPUSCULAR HGB CONC 31.6 g/dL (32.0-36.0); MEAN CORPUSCULAR VOLUME 88.8 fL (79-99); MONOCYTES % (AUTO) 7.9 % (3.0-13.0); NUCLEATED RED BLOOD CELLS 0.3 % (0.0-0.19); PLATELET COUNT (AUTO) 293 K/uL (130-400); RED BLOOD CELL COUNT(AUTO) 3.31 MIL/uL (4.00-5.50); RED CELL DISTRIBUTION WIDTH 16.1 % (11.0-15.5); WHITE BLOOD COUNT (AUTO) 12.3 K/uL (4.8-10.8)
[2021-01-28] MEDS: SOLU-MEDROL 40MG VIAL IVP SCH ×3 (04:58→20:19)
[2021-01-28 05:05] LABS: BILIRUBIN,TOTAL 0.1 mg/dL (0.2-1.0); CREATININE 2.5 mg/dL (0.5-1.5); MAGNESIUM 2.4 mg/dL (1.80-2.40); POTASSIUM 4.2 mmol/L (3.5-5.1); TOTAL PROTEIN, SERUM 5.6 g/dL (6.0-8.3)
[2021-01-28] MEDS: INSULIN HUMULIN R 100 UNIT/ML 3ML SQ SCH ×7 (06:38→20:21)
[2021-01-28] MEDS: BUSPIRONE HCL 5 MG TABLET PO SCH ×3 (09:47→20:18)
[2021-01-28] MEDS: CYCLOBENZAPRINE HCL 10 MG TABLET PO SCH ×3 (09:47→20:18)
[2021-01-28] MEDS: CETIRIZINE HCL 5 MG TABLET PO SCH (09:47)
[2021-01-28] MEDS: SERTRALINE HCL 50 MG TABLET PO SCH (09:47)
[2021-01-28] MEDS: HYDROCHLOROTHIAZIDE 25 MG TABLET PO SCH (09:47)
[2021-01-28] MEDS: AMLODIPINE 5 MG TAB PO SCH (09:47)
[2021-01-28] MEDS: HYDRALAZINE HCL 10 MG TABLET PO SCH ×3 (09:47→20:18)
[2021-01-28] MEDS: PANTOPRAZOLE 40 MG TAB DR PO SCH (09:47)
[2021-01-28] MEDS: METOPROLOL TARTRATE 50 MG TAB PO SCH (09:48)
[2021-01-28] MEDS: TRIAMCINOLONE ACETONIDE 0.1% CREAM 15GM TP SCH ×4 (09:49→20:19)
[2021-01-28] MEDS: LACTULOSE 20 GM/30 ML UDCUP PO PRN ×2 (11:32→20:19)
[2021-01-28] MEDS: HYDRALAZINE 20MG/ML VIAL IV PRN (11:35)
[2021-01-28] MEDS: CEFTRIAXONE 1G VIAL IVP SCH (13:50)
[2021-01-28] MEDS: ATORVASTATIN 40 MG TABLET PO SCH (20:18)
[2021-01-28] MEDS: MIRTAZAPINE 15 MG TABLET PO SCH (20:19)
[2021-01-28] MEDS: INSULIN GLARGINE 100 UNITS/ML 10 ML VIAL SQ SCH (20:21)
[2021-01-29] VITALS: BP 174/64
[2021-01-29] MEDS: HYDRALAZINE 20MG/ML VIAL IV PRN (00:52)
[2021-01-29] MEDS ORDERED: LABETALOL 20MG SYG IV ONE ×2 (02:04→02:30)
[2021-01-29 04:00] VITALS: BP 148/71
[2021-01-29 04:49] LABS: BASOPHILS % (AUTO) 0.2 % (0.0-5.0); HEMATOCRIT 30.7 % (36-48); LYMPHOCYTES % (AUTO) 7.7 % (21.0-51.0); MEAN CORPUSCULAR HEMOGLOBIN 27.2 pg (27.0-33.0); MEAN CORPUSCULAR HGB CONC 31.3 g/dL (32.0-36.0); MONOCYTES % (AUTO) 7.7 % (3.0-13.0); NUCLEATED RED BLOOD CELLS 0.1 % (0.0-0.19); PLATELET COUNT (AUTO) 328 K/uL (130-400); RED BLOOD CELL COUNT(AUTO) 3.53 MIL/uL (4.00-5.50); RED CELL DISTRIBUTION WIDTH 16.1 % (11.0-15.5); WHITE BLOOD COUNT (AUTO) 13.6 K/uL (4.8-10.8)
[2021-01-29 05:10] LABS: BILIRUBIN,TOTAL 0.1 mg/dL (0.2-1.0); CREATININE 2.4 mg/dL (0.5-1.5); POTASSIUM 3.9 mmol/L (3.5-5.1); TOTAL PROTEIN, SERUM 5.7 g/dL (6.0-8.3)
[2021-01-29] MEDS: SOLU-MEDROL 40MG VIAL IVP SCH (05:51)
[2021-01-29] MEDS: INSULIN HUMULIN R 100 UNIT/ML 3ML SQ SCH ×6 (05:52→17:12)
[2021-01-29 07:30] VITALS: BP 153/69
[2021-01-29] MEDS: CETIRIZINE HCL 5 MG TABLET PO SCH (09:58)
[2021-01-29] MEDS: METOPROLOL TARTRATE 50 MG TAB PO SCH (09:59)
[2021-01-29] MEDS: HYDROCHLOROTHIAZIDE 25 MG TABLET PO SCH (09:59)
[2021-01-29] MEDS: PANTOPRAZOLE 40 MG TAB DR PO SCH (09:59)
[2021-01-29] MEDS: BUSPIRONE HCL 5 MG TABLET PO SCH ×2 (09:59→15:09)
[2021-01-29] MEDS: CYCLOBENZAPRINE HCL 10 MG TABLET PO SCH ×2 (09:59→15:09)
[2021-01-29] MEDS: HYDRALAZINE HCL 10 MG TABLET PO SCH ×2 (09:59→15:09)
[2021-01-29] MEDS: SERTRALINE HCL 50 MG TABLET PO SCH (09:59)
[2021-01-29] MEDS: AMLODIPINE 5 MG TAB PO SCH (09:59)
[2021-01-29] MEDS: TRIAMCINOLONE ACETONIDE 0.1% CREAM 15GM TP SCH ×3 (10:03→17:15)
[2021-01-29 11:00] VITALS: BP 146/64
[2021-01-29] MEDS ORDERED: PREDNISONE 20 MG TABLET PO SCH (12:05)
[2021-01-29] MEDS ORDERED: TRIA15CR45 TP (13:40)
[2021-01-29] MEDS ORDERED: AMLO5TAB4 PO (13:40)
[2021-01-29] MEDS ORDERED: Buspirone Hcl PO (13:40)
[2021-01-29] MEDS ORDERED: PRED20B PO (13:40)
[2021-01-29] MEDS ORDERED: PANT40TA PO (13:40)
[2021-01-29] MEDS ORDERED: ATOR40TA69 PO (13:40)
[2021-01-29] MEDS ORDERED: HYDR25TA PO (13:40)
[2021-01-29] MEDS ORDERED: LACTULOSE 20 GM/30 ML UDCUP PO ONE (14:30)
[2021-01-29] MEDS ORDERED: FUROSEMIDE 40MG VIAL IV ONE (14:30)
[2021-01-29] MEDS: CEFTRIAXONE 1G VIAL IVP SCH (15:08)
[2021-01-29 16:00] VITALS: BP 149/51
== END 2021-01-29 19:00 | disposition home or self-care (01) | DRG 194 ==
LOC: EDH 03:46 → EDHIP 03:47 → 4CH 01-19 12:38
PROVIDERS: ADMIT Internal Medicine; ATTEND Internal Medicine
PROC: 5A09357 Assistance with Respiratory Ventilation, Less than 24 Consecutive Hours, Continuous Positive Airway Pressure (ICD-10-PCS; principal; 2021-01-18)
DX: I13.0 Hypertensive heart and chronic kidney disease with heart failure and stage 1 through stage 4 chronic kidney disease, or unspecified chronic kidney disease (principal); J96.01 Acute respiratory failure with hypoxia; E43 Unspecified severe protein-calorie malnutrition; N17.9 Acute kidney failure, unspecified; E87.4 Mixed disorder of acid-base balance; I50.33 Acute on chronic diastolic (congestive) heart failure; Z68.41 Body mass index [BMI] 40.0-44.9, adult; Z20.822 Contact with and (suspected) exposure to COVID-19; E78.5 Hyperlipidemia, unspecified; L40.9 Psoriasis, unspecified; E78.00 Pure hypercholesterolemia, unspecified; E11.22 Type 2 diabetes mellitus with diabetic chronic kidney disease; R45.851 Suicidal ideations; G47.33 Obstructive sleep apnea (adult) (pediatric); E66.01 Morbid (severe) obesity due to excess calories; L26 Exfoliative dermatitis; E87.70 Fluid overload, unspecified; F41.9 Anxiety disorder, unspecified; M19.90 Unspecified osteoarthritis, unspecified site; N18.32 Chronic kidney disease, stage 3b; L53.9 Erythematous condition, unspecified; D50.9 Iron deficiency anemia, unspecified; F32.A Depression, unspecified; Z53.29 Procedure and treatment not carried out because of patient's decision for other reasons; Z79.899 Other long term (current) drug therapy
CPT/HCPCS: 36415; 36600; 71045; 71046; 72110; 76770; 80048; 80053; 80061; 81001; 82550; 82570; 82728; 82803; 82948; 83036; 83540; 83550; 83735; 83874; 83880; 84100; 84145; 84156; 84300; 84443; 84484; 84540; 84550; 85025; 85027; 85651; 86140; 87040; 87077; 87088; 87186; 87635; 93005; 93306; 93970; 94640; 94660; 97039; C9803; G0378; J0360; J0696; J1650; J1756; J1815; J1940; J2920; J3475; J3490; J7050; J7070